=== PATIENT | male | born 1935 | race African-American/Black ===

== ENCOUNTER 2019-11-18 13:40 | Emergency (ER) | payer MEDICARE, OTHER ==
[~2019-11-18] VITALS: Ht 167.6 cm; Wt 52.3 kg
[~2019-11-18 13:40] MED LIST: NOCURR
[2019-11-18 14:57] VITALS: BP 125/99
== END 2019-11-18 15:22 | disposition left against medical advice (07) ==
LOC: EMS 13:51
DX: R53.1 Weakness (principal); Z87.891 Personal history of nicotine dependence